=== PATIENT | male | born 1990 | race Caucasian/White ===

== ENCOUNTER 2017-04-10 15:46 | Emergency (ER) | payer BC ==
--- NOTE | ~2017-04-10 | ER ---
PATIENT'S NAME: MAL GILLESPIE [facility] AGE: 26 Y [address] ROOM: [place] [address] LOCATION: ED ADMIT DATE: 04/10/2017 ER/Outpatient Report DISCHARGE DATE: 04/10/2017 FAMILY PHYSICIAN: , BRIANA ATTENDING PHYSICIAN: Lynn Field Time of Patient's Arrival: 1546 hours. Time of Patient's Evaluation: 1605 hours. CHIEF COMPLAINT: Nausea, vomiting, diarrhea, abdominal discomfort. HISTORY OF PRESENT ILLNESS: This is a 26-year-old male who presents to the ER, who states that he ate at [place] earlier this morning around 6 and then later in the day developed nausea, vomiting, and diarrhea. He states he has some abdominal cramping with this. He has not been running any fevers at home. No troubles with urination. He did go over to [facility]. He did have blood work done, but he did not like that they told him that his blood work is normal, so he came here to the emergency room to have further evaluation. He states he has had no upper respiratory infections. No cough. He states that he has had approximately 4 emeses this afternoon and has had multiple bowel movements. He states that he has not taken anything for his symptoms. He denies other problems at this time. ALLERGIES: NO KNOWN ALLERGIES. MEDICATIONS: 1. Glipizide. 2. Metformin. 3. Aspirin. 4. Losartan. PAST MEDICAL HISTORY: Hypertension and diabetes. PAST SURGICAL HISTORY: Hernia repair and left knee scope. SOCIAL HISTORY: He denies smoking, drug, or alcohol use. REVIEW OF SYSTEMS: PATIENT'S NAME: MAL GILLESPIE [facility] AGE: 26 Y [address] ROOM: [place], [place] [address] LOCATION: ED ADMIT DATE: 04/10/2017 ER/Outpatient Report DISCHARGE DATE: 04/10/2017 FAMILY PHYSICIAN: PHYSICIAN, BRIANA ATTENDING PHYSICIAN: Lynn Field All systems are reviewed and are negative with the exception of those discussed in the HPI. PHYSICAL EXAMINATION: VITAL SIGNS: Height 6 feet stated, weight is 131 kg taken. Blood pressure is 169/100, pulse 79, respirations 16, temperature 99.7 degrees tympanically, and saturations 96% on room air. GENERAL: Alert, obese male, in no obvious distress. HEENT: Head: Normocephalic. Eyes: Pupils are equal and reactive to light. Does display moist mucous membranes. LUNGS: Clear to auscultation bilaterally. HEART: Regular rate and rhythm. ABDOMEN: Soft. He has generalized tenderness in all 4 quadrants with palpation. No guarding. No rebound tenderness. He has good bowel sounds throughout. No masses are palpated. EXTREMITIES: No clubbing or cyanosis. He has full range of motion of all limbs. SKIN: Warm, dry, and intact. LABORATORY DATA: CBC: White count is 9.0, hemoglobin is 14.1, platelets are 157, and ANC is 7.5. CMS: Glucose is 258, BUN 20, creatinine 2.2, sodium 136, and potassium 3.8. Amylase is 23, lipase is 90. Did do a stool series ova and parasite screen, Giardia, and Cryptosporidium are negative. C. difficile is negative. Fecal white blood cells, rare. Occult blood was negative. H. pylori was negative. Urinalysis/UA micro: White blood cells 5-10, red blood cells 2-5, epithelial 5-10, bacteria negative. VBG: A pH 7.35, pCO2 is 49. Lactate is 1.9. Hemoglobin A1c is 10.8. A CT scan of his abdomen shows inflammatory changes adjacent to the bilateral kidneys, which could reflect pyelonephritis. Labs were also reviewed from [facility]. IMPRESSION: 1. Nausea, vomiting, and diarrhea. 2. CT findings of pyelonephritis. ASSESSMENT AND PLAN: We did start an IV here in the emergency room and did give him a total of 2 L of IV fluids. We did give him 4 mg of Zofran and 2 mg of morphine. The patient states his morphine did not help him, therefore, we did give him 0.5 mg of Dilaudid. He slept throughout his ER stay. He rested comfortably and his abdomen remained nonacute while he was here. We did give him Rocephin 1 g IV here in the emergency room and we will dismiss him home with a prescription for Zofran, Cipro, and doxycycline. He needs to do small amounts of fluids frequently; if he is able to hold down fluids, then he may advance to a bland diet. I would like him to follow up with his primary care physician on Wednesday PATIENT'S NAME: MAL GILLESPIE [facility] AGE: 26 Y [address] ROOM: [place] [address] LOCATION: [facility] ADMIT DATE: 04/10/2017 ER/Outpatient Report DISCHARGE DATE: 04/10/2017 FAMILY PHYSICIAN: , NO ATTENDING PHYSICIAN: Lynn Field to recheck his blood work and to make sure he is doing better; otherwise, he is to return to the emergency room if his symptoms worsen. The patient understands and agrees with care. HALEIGH CHOE PA-C FOR MD PURNIMA WHITE/ney /[id number] d: t: 04/15/17 1250, OUTPATIENT REPORT
[2017-04-10 16:36] LABS: BASOPHIL % 0.2 %; EOSINOPHIL % 0.2 %; HEMATOCRIT 39.2 % (37.0-53.0); HEMOGLOBIN 14.1 g/dL (12.0-17.0); IMMATURE GRANULOCYTE % 0.3 %; LYMPHOCYTE # 0.7 K/uL (0.8-4.0); MCH 30.2 pg (27.0-34.0); MCV 83.9 fl (83.0-98.0); MONOCYTE # 0.7 K/uL (0.0-1.0); MONOCYTE % 7.8 %; MPV 11.5 fl (9.4-12.4); NEUTROPHIL # (ANC) 7.5 K/uL (1.4-9.0); NEUTROPHIL % 83.5 %; NRBC % 0 /100WBC (0-0.00); PLATELET COUNT 157 K/uL (150-450); RBC 4.67 M/uL (4.00-6.00); RDW-CV 13.1 % (11.9-14.6)
[2017-04-10 16:57] LABS: ALBUMIN 3.2 gm/dL (3.5-5.0); ANION GAP 13.8 (10.0-19.0); CREATININE 2.2 mg/dL (0.6-1.3); POTASSIUM 3.8 mMol/L (3.7-5.1); TOTAL BILIRUBIN 0.4 mg/dL (0.0-1.5); TOTAL PROTEIN 6.8 g/dL (6.0-8.4)
[2017-04-10 17:37] LABS: BILIRUBIN URINE NEGATIVE (NEGATIVE); BLOOD URINE 50 /UL (NEGATIVE); COLOR URINE YELLOW (YELLOW); GLUCOSE URINE 100 mg/dL (NEGATIVE); KETONE URINE NEGATIVE (NEGATIVE); LEUKOCYTES URINE NEGATIVE /UL (NEGATIVE); NITRITE URINE NEGATIVE (NEGATIVE); PH URINE 6.5 (4.0-8.0); PROTEIN URINE 500 mg/dL (NEGATIVE); SPEC GRAVITY URINE 1.005 (1.003-1.035); TURBIDITY URINE CLEAR (CLEAR); UROBILINOGEN URINE NORMAL (NORMAL)
[2017-04-10 17:52] LABS: BACTERIA URINE NEGATIVE (NEGATIVE)
[2017-04-10 19:34] LABS: BICARBONATE 27.1 mmol/L (18.0-23.0); LACTATE 1.9 mEq/L (0.50-1.60); PCO2 49 mmHg (35-45)
[2017-04-10 19:35] LABS: PO2 30 mmHg (80-90)
== END 2017-04-10 22:35 | disposition disaster alternative care site (69) ==
LOC: GMED 15:46
PROVIDERS: Physician Assistant Medical
DX: N12 Tubulo-interstitial nephritis, not specified as acute or chronic (principal); R19.7 Diarrhea, unspecified; I10 Essential (primary) hypertension; E11.9 Type 2 diabetes mellitus without complications; Z79.82 Long term (current) use of aspirin; Z79.84 Long term (current) use of oral hypoglycemic drugs; Z98.890 Other specified postprocedural states
CPT/HCPCS: J0696; J1170; J2270; J2405; J7030